=== PATIENT | female | born 1980 | race Caucasian/White ===

== ENCOUNTER 2016-08-15 16:22 | Emergency (ER) | payer SELFPAY ==
[~2016-08-15] VITALS: Ht 160 cm; Wt 65.8 kg
[2016-08-15 17:14] VITALS: BP 128/99; PULSE 97; RESP 16; TEMP 97.4; O2SAT 100
--- NOTE | 2016-08-15 17:22 | NUR ---
Patient to ER bed 7 to gown for evaluation. Side rails up. Report given to DINORAH CORONA.
--- NOTE | 2016-08-15 17:24 | NUR ---
Pt presents to ED c/o anxiety. Pt appears anxious and crying. Pt denies SI or HI. Pt has no med hx.
--- NOTE | 2016-08-15 17:30 | NUR ---
ER at bedside examining patient.
[2016-08-15 17:47] VITALS: BP 122/85; PULSE 97; RESP 16; TEMP 97.4; O2SAT 100
--- NOTE | 2016-08-15 17:47 | NUR ---
Patient given written and verbal discharge instructions and verbalizes understanding. ER MD discussed with patient the results and treatment provided. Given copies of tests performed in ER. Patient in stable condition. ID arm band removed. Rx of Xanax given. Patient educated on pain management and to follow up with PMD. Pain Scale 0. Opportunity for questions provided and answered.
== END 2016-08-15 17:47 | disposition home or self-care (01) ==
LOC: SED 16:22
DX: F41.9 Anxiety disorder, unspecified (principal)
CPT/HCPCS: 99283

== ENCOUNTER 2016-09-05 12:49 | Emergency (ER) | payer SELFPAY ==
[~2016-09-05] VITALS: Ht 157.5 cm; Wt 63.5 kg
[2016-09-05 13:00] VITALS: BP 116/80; PULSE 78; RESP 16; TEMP 98; O2SAT 99
--- NOTE | 2016-09-05 13:02 | NUR ---
1MBULATED TO BED 5
--- NOTE | 2016-09-05 13:10 | NUR ---
Patient in stable condition, alert and oriented x4. Samoan speaking. Samoan speaking nurse translating for patient. Patient states she needs xanax refill because she ran out. States has appt this week with Dr. Gómez. Patient is calm, does not appear anxious. Denies feeling anxious at this time. No other complaints/injuries per patient or noted.
--- NOTE | 2016-09-05 13:13 | NUR ---
Dr. Ndiaye at bedside
[2016-09-05 13:45] VITALS: BP 116/80; PULSE 78; RESP 16; TEMP 98
--- NOTE | 2016-09-05 13:45 | NUR ---
Patient given written and verbal discharge instructions and verbalizes understanding. ER MD discussed with patient the results and treatment provided. Given copies of tests performed in ER. Patient in stable condition. ID arm band removed. Patient educated on pain management and to follow up with PMD. Pain Scale 0. Opportunity for questions provided and answered.
[2016-09-05 13:52] VITALS: O2SAT 99
== END 2016-09-05 13:45 | disposition home or self-care (01) ==
LOC: SED 12:49
DX: Z76.0 Encounter for issue of repeat prescription (principal); F32.9 Major depressive disorder, single episode, unspecified; F41.9 Anxiety disorder, unspecified
CPT/HCPCS: 99283